=== PATIENT | female | born 1945 | race Two or more races ===

== ENCOUNTER 2023-12-13 15:15 | Inpatient (IN) | payer MEDICARE, OTHER ==
[~2023-12-13] VITALS: Ht 162.6 cm; Wt 68.0 kg
[2023-12-13] MEDS ORDERED: HYDR-4322 PO (23:17)
[2023-12-13] MEDS ORDERED: PANT40TA49 PO (23:17)
[2023-12-13] MEDS ORDERED: MIDO5TAB4 GT (23:17)
[2023-12-13] MEDS ORDERED: ATOR10TA PO (23:17)
[2023-12-13] MEDS ORDERED: ICOS1CAP PO (23:17)
[2023-12-13] MEDS ORDERED: POLY250017 PO (23:17)
[2023-12-13] MEDS ORDERED: AMIO200T7 PO (23:17)
[2023-12-13] MEDS ORDERED: TRAM50TA2 PO (23:17)
[2023-12-13] MEDS ORDERED: ONDA-104 PO (23:17)
[2023-12-13] MEDS ORDERED: ACET325C7 PO (23:17)
[2023-12-13] MEDS ORDERED: FERR-56 PO (23:17)
[2023-12-14 04:30] VITALS: BP 129/51; TEMP 97.8; O2SAT 97
[2023-12-14] MEDS ORDERED: REMEDY ESSENTIAL ZINC PASTE 113 GM TOP SCH (09:00)
[2023-12-14] MEDS: REMEDY ESSENTIAL ZINC PASTE 113 GM TOP SCH (09:00)
[2023-12-14] MEDS ORDERED: POLY17PO4 PO (09:21)
[2023-12-14] MEDS ORDERED: ONDANSETRON HCL 4 MG TABLET PO PRN (12:15)
[2023-12-14] MEDS ORDERED: MIRALAX 17 GM POWD.PACK PO PRN (12:15)
[2023-12-14] MEDS: ATORVASTATIN 10 MG TABLET PO SCH ×2 (12:15→21:15)
[2023-12-14] MEDS: TRAMADOL HCL 50 MG TABLET PO PRN (12:24)
[2023-12-14 13:00] VITALS: BP 106/61; TEMP 98.3; O2SAT 98
[2023-12-14] MEDS: OMEGA-3 FATTY ACIDS/FISH OIL CAPSULE PO SCH (13:18)
[2023-12-14] MEDS: MIDODRINE HCL 5 MG TABLET PO SCH (13:18)
[2023-12-14] MEDS: FERROUS SULFATE 325 MG TABEC PO SCH (13:18)
[2023-12-14] MEDS: AMIODARONE HCL 200 MG TABLET PO SCH (13:18)
[2023-12-14] MEDS: HYDROCORTISONE 10 MG TABLET PO SCH (13:37)
[2023-12-14 16:00] VITALS: BP 118/53; TEMP 97.9; O2SAT 100
[2023-12-14] MEDS: ACETAMINOPHEN 325 MG TABLET PO PRN (16:05)
[2023-12-14] MEDS: PANTOPRAZOLE SODIUM 40 MG TABLET.DR PO SCH (18:13)
[2023-12-14 18:22] VITALS: TEMP 98.5; O2SAT 97
[2023-12-14 20:00] VITALS: BP 117/65; TEMP 97.5; O2SAT 97
[2023-12-15 05:24] VITALS: BP 138/62; TEMP 98.2; O2SAT 98
[2023-12-15 12:42] LABS: BASOPHILS # (AUTO) 0.1 K/UL (0.0-0.2); BASOPHILS % (AUTO) 0.9 % (0.0-2.0); EOSINOPHILS # (AUTO) 0.1 K/uL (0.0-0.7); EOSINOPHILS % (AUTO) 1.1 % (0.0-7.0); HEMATOCRIT 28.7 % (31.2-41.9); HEMOGLOBIN 9.8 g/dL (10.9-14.3); LYMPHOCYTES # (AUTO) 1.1 K/uL (0.8-4.8); LYMPHOCYTES % (AUTO) 13.7 % (20.5-51.5); MEAN CORPUSCULAR HEMOGLOBIN 30.5 uug (24.7-32.8); MEAN CORPUSCULAR HGB CONC 34 g/dL (32.3-35.6); MEAN CORPUSCULAR VOLUME 89.5 fL (75.5-95.3); MONOCYTES # (AUTO) 0.7 K/uL (0.1-1.30); MONOCYTES % (AUTO) 8.8 % (0.0-11.0); NEUTROPHILS % (AUTO) 75.5 % (38.5-71.5); PLATELET COUNT (AUTO) 277 K/uL (179-408); RED BLOOD CELL COUNT(AUTO) 3.21 MIL/uL (3.63-4.92); RED CELL DISTRIBUTION WIDTH 16.9 % (12.3-17.7); WHITE BLOOD COUNT (AUTO) 7.9 K/uL (3.8-11.8)
[2023-12-15 12:55] LABS: CARBON DIOXIDE 29 mmol/L (21-32); CHLORIDE 106 mmol/L (98-107); CREATININE 0.6 mg/dL (0.6-1.3); GLUCOSE 105 mg/dL (74-106); SODIUM SERUM 142 mmol/L (136-145); UREA NITROGEN, BLOOD 13 mg/dL (7-18)
[2023-12-15 13:02] LABS: DIFFERENTIAL COMMENT 1
[2023-12-15 15:50] VITALS: BP 123/46; TEMP 98.5; O2SAT 100
[2023-12-15 20:53] VITALS: BP 135/60; TEMP 98.3; O2SAT 98
[2023-12-15] MEDS: VASCEPA 1 GM PO SCH (21:32)
[2023-12-16 06:07] VITALS: BP 121/59; TEMP 98.4; O2SAT 98
[2023-12-16 07:18] VITALS: BP 135/60; TEMP 98.4; O2SAT 98
[2023-12-16 16:54] VITALS: BP 130/51; TEMP 97.7; O2SAT 100
[2023-12-16 20:00] VITALS: BP 144/55; TEMP 98; O2SAT 97
[2023-12-17 00:50] VITALS: BP 115/50; TEMP 98.2; O2SAT 97
[2023-12-17 06:41] VITALS: BP 121/54; TEMP 98.1; O2SAT 97
[2023-12-17 16:15] VITALS: BP 102/36; TEMP 97.8; O2SAT 97
[2023-12-17 19:15] VITALS: BP 140/59; TEMP 98.1; O2SAT 97
[2023-12-17 19:55] VITALS: BP 140/59; O2SAT 97
[2023-12-17 19:56] VITALS: BP 141/62; O2SAT 97
[2023-12-18 07:26] LABS: EOSINOPHILS # (AUTO) 0.1 K/uL (0.0-0.7); HEMATOCRIT 28.1 % (31.2-41.9); HEMOGLOBIN 9.7 g/dL (10.9-14.3); LYMPHOCYTES # (AUTO) 1.2 K/uL (0.8-4.8); LYMPHOCYTES % (AUTO) 27.1 % (20.5-51.5); MEAN CORPUSCULAR HEMOGLOBIN 30.8 uug (24.7-32.8); MEAN CORPUSCULAR HGB CONC 35 g/dL (32.3-35.6); MEAN CORPUSCULAR VOLUME 88.9 fL (75.5-95.3); MONOCYTES # (AUTO) 0.4 K/uL (0.1-1.30); MONOCYTES % (AUTO) 9.6 % (0.0-11.0); NEUTROPHILS # (AUTO) 2.6 K/uL (1.8-8.9); NEUTROPHILS % (AUTO) 59.3 % (38.5-71.5); PLATELET COUNT (AUTO) 248 K/uL (179-408); RED BLOOD CELL COUNT(AUTO) 3.16 MIL/uL (3.63-4.92); RED CELL DISTRIBUTION WIDTH 16.8 % (12.3-17.7); WHITE BLOOD COUNT (AUTO) 4.4 K/uL (3.8-11.8)
[2023-12-18 07:32] LABS: DIFFERENTIAL COMMENT 1
[2023-12-18 07:42] LABS: ALBUMIN 2.4 g/dL (3.4-5.0); BILIRUBIN,TOTAL 0.6 mg/dL (0.2-1.0); CREATININE 0.6 mg/dL (0.6-1.3); PHOSPHOROUS 3.3 mg/dL (2.5-4.9); POTASSIUM 3.9 mmol/L (3.5-5.1); TOTAL PROTEIN, SERUM 5.6 g/dL (6.4-8.2)
[2023-12-18 08:56] VITALS: BP_SYST 127; BP_SYST 145; BP_SYST 147; BP_DIAS 65; BP_DIAS 68; BP_DIAS 69; TEMP 97.9; O2SAT 97
[2023-12-18] MEDS: MIDODRINE HCL 5 MG TABLET PO SCH (09:00)
[2023-12-18 13:33] VITALS: BP_SYST 105; BP_SYST 117; BP_SYST 119; BP_SYST 121; BP_DIAS 53; BP_DIAS 59; BP_DIAS 60; TEMP 98; O2SAT 100
[2023-12-18 16:08] VITALS: BP 125/55; TEMP 98.3; O2SAT 100
[2023-12-18 16:26] VITALS: BP_SYST 105; BP_SYST 118; BP_SYST 121; BP_SYST 135; BP_DIAS 47; BP_DIAS 50; BP_DIAS 59; BP_DIAS 60; TEMP 98; O2SAT 100
[2023-12-18] MEDS: [UNRECOGNIZED DRUG - OTHER] PO SCH (20:38)
[2023-12-18] MEDS: VASCEPA 1 GM PO SCH (20:38)
[2023-12-18 22:54] VITALS: BP 122/55; TEMP 98.2; O2SAT 95
[2023-12-19] VITALS (10 sets, daily range): BP systolic 118–145; BP diastolic 45–72; TEMP 98–98.6; O2SAT 97–98
[2023-12-19] MEDS ORDERED: [UNRECOGNIZED DRUG - OTHER] PO SCH (12:31)
[2023-12-19] MEDS ORDERED: VASCEPA 1 GM PO SCH (12:31)
[2023-12-19] MEDS: [UNRECOGNIZED DRUG - OTHER] PO SCH (21:11)
[2023-12-19] MEDS: VASCEPA 1 GM PO SCH (21:11)
[2023-12-20] VITALS (8 sets, daily range): BP systolic 102–129; BP diastolic 20–62; TEMP 97.9–98.1; O2SAT 96–98
[2023-12-21] VITALS (7 sets, daily range): BP systolic 114–148; BP diastolic 46–69; TEMP 97.9–98.4; O2SAT 92–98
[2023-12-21] MEDS: MELATONIN 3 MG TABLET PO PRN (22:51)
[2023-12-22 05:36] VITALS: BP 130/48; TEMP 97.6; O2SAT 98
[2023-12-22 08:15] VITALS: BP 130/53; TEMP 97.6; O2SAT 96
[2023-12-22 13:30] VITALS: BP_SYST 121; BP_SYST 125; BP_SYST 126; BP_DIAS 45; BP_DIAS 50; BP_DIAS 54
[2023-12-22 16:08] VITALS: BP 122/50; TEMP 97.2; O2SAT 98
[2023-12-22 21:19] VITALS: BP 133/51; TEMP 98.4; O2SAT 99
[2023-12-22] MEDS: [UNRECOGNIZED DRUG - OTHER] PO SCH (21:22)
[2023-12-22] MEDS: VASCEPA 1 GM PO SCH (21:22)
[2023-12-23 06:26] VITALS: BP 136/62; TEMP 98.8; O2SAT 97
[2023-12-23 09:00] VITALS: BP_SYST 129; BP_SYST 137; BP_SYST 147; BP_DIAS 62; BP_DIAS 67; BP_DIAS 69
[2023-12-23] MEDS: VASCEPA 1 GM PO SCH (09:28)
[2023-12-23] MEDS: [UNRECOGNIZED DRUG - OTHER] PO SCH (09:28)
[2023-12-23 13:00] VITALS: BP 125/51
[2023-12-23 17:39] VITALS: BP 132/57
[2023-12-23 20:00] VITALS: BP 130/55; TEMP 98.6; O2SAT 98
[2023-12-24 05:25] VITALS: BP 145/63; TEMP 98.2; O2SAT 100
[2023-12-24 07:44] VITALS: BP 139/58; TEMP 98.2; O2SAT 97
[2023-12-24 15:24] VITALS: BP 130/63; TEMP 98.4; O2SAT 98
[2023-12-24 20:00] VITALS: BP 152/66; TEMP 98.5; O2SAT 98
[2023-12-25 06:00] VITALS: BP 138/62; TEMP 97.9; O2SAT 96
[2023-12-25 08:47] VITALS: BP 144/64; TEMP 97.8; O2SAT 98
== END 2023-12-25 14:30 | disposition home health service (06) | DRG 560 ==
PROVIDERS: ADMIT Physical Medicine & Rehabilitation Pain Medicine; ATTEND Physical Medicine & Rehabilitation Pain Medicine
DX: S42.202D Unspecified fracture of upper end of left humerus, subsequent encounter for fracture with routine healing (principal); D62 Acute posthemorrhagic anemia; S52.502D Unspecified fracture of the lower end of left radius, subsequent encounter for closed fracture with routine healing; S52.602D Unspecified fracture of lower end of left ulna, subsequent encounter for closed fracture with routine healing; S32.592D Other specified fracture of left pubis, subsequent encounter for fracture with routine healing; W18.30XD Fall on same level, unspecified, subsequent encounter; E78.5 Hyperlipidemia, unspecified; I10 Essential (primary) hypertension; I95.1 Orthostatic hypotension; N30.91 Cystitis, unspecified with hematuria; R00.8 Other abnormalities of heart beat; E66.9 Obesity, unspecified
CPT/HCPCS: 36415; 83735; 84100; 85025; 97535-GO-CO; A4663; A6209